=== PATIENT | male | born 1955 | race Caucasian/White ===

== ENCOUNTER → 2020-04-07 | Outpatient (CLI) | payer MEDICARE ==
--- NOTE | 2020-04-07 12:21 | RAD ---
EXAM: Chest CT without intravenous contrast. HISTORY: Pulmonary nodule. TECHNIQUE: Computed tomographic images of the chest were obtained without contrast. Multiplanar reformatting was performed. *One or more of the following individualized dose reduction techniques were utilized for this examination: 1. Automated exposure control. 2. Adjustment of the mA and/or kV according to patient size. 3. Use of iterative reconstruction technique. COMPARISON: None. FINDINGS: There is a 10 mm solid circumscribed nodule within the inferior lateral right upper lobe. There are few calcified granulomas, the largest of which is seen within the medial left upper lobe. There is minimal biapical predominant emphysema. There is peripheral groundglass and nodular opacity within the anterior aspects of both lungs likely due to chronic interstitial changes. There is no infiltrate, pleural effusion or pneumothorax. The heart is normal in size. The aorta is aortic and coronary artery atherosclerosis. There are prominent mediastinal and hilar lymph nodes. For reference purposes, there is a right paratracheal lymph node measuring 2.1 cm and a subcarinal lymph node or lymph node conglomerate measuring 3.2 cm. There is a tiny cyst within the right hepatic lobe. The gallbladder is contracted likely due to the postprandial status of patient. There is no suspicious osseous lesion. There are degenerative changes throughout the spine. IMPRESSION: 1. 10 mm inferior lateral right upper lobe pulmonary nodule. This is within limits in size for assessment with PET/CT, if there are no prior studies to assess for interval change. 2. Minimal apical predominant emphysema with superimposed anterior upper lobe predominant chronic interstitial changes. 3. Healed granulomatous disease. 4. Mediastinal and hilar lymphadenopathy. This is nonspecific and may be reactive in etiology. The possibility of underlying neoplasm is not excluded in the absence of prior studies to assess for change. Electronically signed by: Maddy Muro MD (04/07/2020 12:18 PM) [id number]
== END ==
LOC: CT 11:43
PROVIDERS: ATTEND Internal Medicine Pulmonary Disease
DX: R91.1 Solitary pulmonary nodule (principal); J43.9 Emphysema, unspecified; I70.0 Atherosclerosis of aorta; I25.10 Atherosclerotic heart disease of native coronary artery without angina pectoris
CPT/HCPCS: 71250

== ENCOUNTER → 2020-06-23 | Outpatient (CLI) | payer MEDICARE ==
[~2020-06-23] MED LIST: ALLO300T PO; ATOR40TA59 PO; GLUC-11 PO; LISI-334 PO; MULT-766 PO
== END ==
LOC: LAB 13:16
PROVIDERS: ATTEND Nurse Anesthetist, Certified Registered
DX: Z01.812 Encounter for preprocedural laboratory examination (principal); K42.9 Umbilical hernia without obstruction or gangrene; Z20.828 Contact with and (suspected) exposure to other viral communicable diseases
CPT/HCPCS: U0003

== ENCOUNTER → 2020-06-27 | Day surgery (SDC) | payer MEDICARE ==
[~2020-06-27] MED LIST changes: +ACETAMINOPHEN 500 MG TABLET PO ONE; +BUPIVACAINE-EPI 0.25%-1:200000 MPF 30 ML VIAL. ONE; +DEXAMETHASONE SOD PHOS 4 MG/ML VIAL. ONE; +GLYCOPYRROLATE 1 MG/5 ML VIAL. ONE; +IPRATRPIUM/ALBUTEROL 0.5/2.5MG 3 ML NEBU. NEB PRN; +IV RINGERS SOLUTION,LACTATED 1,000 ML IV SCH; +LIDOCAINE 2% PF 5 ML VIAL. ONE; -LISI-334 PO; +LISI20TA18 PO; +MIDAZOLAM HCL PF 2 MG/2 ML VIAL. IV ONE; +MIDAZOLAM HCL PF 2 MG/2 ML VIAL. ONE; +NEOSTIGMINE 10 MG/10 ML VIAL. ONE; +ONDANSETRON PF 4 MG/2 ML VIAL. IV PRN; +ONDANSETRON PF 4 MG/2 ML VIAL. ONE; +PROPOFOL 10,000 MCG/ML (20ML) VIAL IV ONE; +ROCURONIUM 50 MG/5 ML VIAL. ONE; +SEVOFLURANE 31 TO 60 MINUTES. IH ONE; +SUCCINYLCHOLINE 200 MG/10 ML VIAL. ONE; +levoFLOXacin 500mg PREMIX 500 MG/100 ML BAG IV ONE
--- NOTE | 2020-06-27 11:46 | PDOC4 ---
Operative Report DATE June 272020 at 1145 Preop Diagnosis Umbilical hernia Post-op Diagnosis Same Operation Performed Umbilical hernia repair Patient is a 65-year-old male with umbilical hernia. Procedure of open umbilical hernia repair was explained to the patient detail risk benefits were also discussed including bleeding infection alternatives to this procedure also discussed with patient who seemed to understand and gave a verbal written consent to have the procedure performed. Patient was taken to the operating room placed in the supine position general anesthesia was initiated once patient was sleeping intubated his abdomen was prepped and draped in usual sterile fashion using ChloraPrep. Area around the umbilicus was injected quarter percent Marcaine with epinephrine incision was made with a 15 blade scalpel just above the umbilicus is carried down through subcutaneous tissues electrocautery right hemostasis down to the fascial defect. The fascia was then closed with a [id number] 0 Vicryl suture. The skin was then reapproximated for subcuticular Monocryl Mastisol Steri-Strips and island dressings were applied. Patient was awakened extubated in the operating room taken to recovery in stable condition all sponge instrument needle counts listed as correct estimated blood loss 5 mL Surgeon Neville ANESTHESIA PROPOSED: GENERAL Blood Loss 5 mL Specimen None Complications None CHYNA DAVEY MD Jun 27, 2020 11:46
--- NOTE | 2020-06-27 11:48 | DISCH ---
DISCHARGE INSTRUCTIONS-DC Condition on Discharge Condition on Discharge: Stable Activity after Discharge Activity Instructions for Disc: Avoid exertion Other activity instructions: No lifting more than 20 pounds for 2 weeks Diet after Discharge Diet after Discharge: Regular Wound/Incision Care Other wound/incision instructi: Kavita shower 24 hours Contacting the DRAb after DC Call your doctor for: If your condition worsens Follow-Up Follow up with: Dr. Davey in 2 weeks CHYNA DAVEY MD Jun 27, 2020 11:48
[2020-06-27 12:54] VITALS: BP 122/70
== END | disposition home or self-care (01) ==
LOC: SURG 10:37
PROVIDERS: ATTEND Surgery
DX: K42.9 Umbilical hernia without obstruction or gangrene (principal); E78.5 Hyperlipidemia, unspecified; I10 Essential (primary) hypertension; M10.9 Gout, unspecified; J43.9 Emphysema, unspecified; I70.0 Atherosclerosis of aorta; I25.10 Atherosclerotic heart disease of native coronary artery without angina pectoris; Z85.828 Personal history of other malignant neoplasm of skin; Z79.899 Other long term (current) drug therapy; Z79.82 Long term (current) use of aspirin; Z82.49 Family history of ischemic heart disease and other diseases of the circulatory system
CPT/HCPCS: 49585; J0330; J1100; J1956; J2001; J2250; J2405; J2704; J2710; J3010; J3490; J7120

== ENCOUNTER → 2020-10-12 | Outpatient (CLI) | payer MEDICARE ==
[2020-06-27 12:54] VITALS: BP 122/70
[~2020-10-12] MED LIST changes: -ACETAMINOPHEN 500 MG TABLET PO ONE; -BUPIVACAINE-EPI 0.25%-1:200000 MPF 30 ML VIAL. ONE; -DEXAMETHASONE SOD PHOS 4 MG/ML VIAL. ONE; -GLYCOPYRROLATE 1 MG/5 ML VIAL. ONE; -IPRATRPIUM/ALBUTEROL 0.5/2.5MG 3 ML NEBU. NEB PRN; -IV RINGERS SOLUTION,LACTATED 1,000 ML IV SCH; -LIDOCAINE 2% PF 5 ML VIAL. ONE; -MIDAZOLAM HCL PF 2 MG/2 ML VIAL. IV ONE; -MIDAZOLAM HCL PF 2 MG/2 ML VIAL. ONE; -NEOSTIGMINE 10 MG/10 ML VIAL. ONE; -ONDANSETRON PF 4 MG/2 ML VIAL. IV PRN; -ONDANSETRON PF 4 MG/2 ML VIAL. ONE; -PROPOFOL 10,000 MCG/ML (20ML) VIAL IV ONE; -ROCURONIUM 50 MG/5 ML VIAL. ONE; -SEVOFLURANE 31 TO 60 MINUTES. IH ONE; -SUCCINYLCHOLINE 200 MG/10 ML VIAL. ONE; -levoFLOXacin 500mg PREMIX 500 MG/100 ML BAG IV ONE
--- NOTE | 2020-10-12 09:37 | RAD ---
INDICATION: Reason: HTN, SCREENING, HX OF SMOKING X 50 YEARS / Spl. Instructions: / History: COMPARISON: None. FINDINGS: Spectral Doppler, color and grayscale ultrasound images are obtained through the abdominal aorta. Measurements of abdominal aorta are from proximal to distal in millimeters: Proximal 18 x 16, mid 16 x 18, distal 18 x 17. Common iliac arteries are approximately 10 mm. Calcific atherosclerosis. Prominent velocities in the right greater than left common iliac artery measures 245 on the right and 179 cm/S on the left. IMPRESSION: * Calcific atherosclerosis without aneurysmal dilatation of abdominal aorta. * Prominent velocities in the common iliac arteries. A portion this is likely technical in nature bu t a site of narrowing is not excluded Electronically signed by: Franco Teran MD (10/12/2020 9:34 AM) [id number]
== END ==
LOC: US 08:46
PROVIDERS: ATTEND Specialist
DX: I71.4 Abdominal aortic aneurysm, without rupture (principal); I10 Essential (primary) hypertension; I70.0 Atherosclerosis of aorta; Z87.891 Personal history of nicotine dependence
CPT/HCPCS: 76770

== ENCOUNTER → 2021-01-29 | Outpatient (CLI) | payer MEDICARE ==
[2020-06-27 12:54] VITALS: BP 122/70
--- NOTE | 2021-01-29 13:19 | RAD ---
CT ABDOMEN+PELVIS WO INDICATION: LLQ PAIN TIMES 5 DAYS EXAM: Noncontrast CT of the abdomen and pelvis. Coronal and sagittal reformatted images were perform ed. PQRS compliance statement: One or more of the following individualized dose reduction techniques were utilized for this examinat ion: 1. Automated exposure control 2. Adjustment of the mA and/or kV according to patient size 3. Use of iterative reconstruction technique COMPARISON: None FINDINGS: No free air, free fluid, or fluid collection. Lower chest: The visualized lower lungs are aerated. No pleural or pericardial effusion. ABDOMEN: Liver: The noncontrast liver is homogeneous in attenuation. Gallbladder and biliary: Normal gallbladder without radiopaque stone. Normal caliber bile ducts. Spleen: Normal spleen. Pancreas: The noncontrast pancreas is homogeneous in attenuation without peripancreatic inflammatory changes. Adrenal glands: Normal adrenal glands. Kidneys and ureters: Right renal 4 mm calculus. No hydronephrosis. GI tract: The stomach is decompressed and poorly evaluated. Normal caliber small bowel and colon. Col onic diverticulosis. Normal appendix. Locule of fat along the descending colon with hyperdense rim an d surrounding inflammatory stranding. Vascular structures: Normal caliber abdominal aorta. Moderate aortoiliac atherosclerotic disease. Lymph nodes: No lymphadenopathy in the abdomen or pelvis. PELVIS: Genitourinary system: Normal bladder. SKELETAL STRUCTURES AND SOFT TISSUES: Degenerative changes of the spine. Transitional lumbosacral tanika alexander with a lumbarized S1 vertebra and rudimentary disc at S1-S2. Moderate to severe spinal canal norberto nosis at L3-4 and L4-5. IMPRESSION: 1. Epiploic appendagitis along the descending colon. 2. Diverticulosis without evidence of acute diverticulitis. 3. Nonobstructive right renal 4 mm calculus. 4. Moderate to severe spinal canal stenosis at L3-4 and L4-5. This could be further characterized wit h MRI, if clinically warranted. Electronically signed by: Lincoln Cifuentes MD (01/29/2021 1:17 PM) [id number]
== END ==
LOC: CT 12:47
PROVIDERS: ATTEND Specialist
DX: N20.0 Calculus of kidney (principal); K57.30 Diverticulosis of large intestine without perforation or abscess without bleeding; K63.89 Other specified diseases of intestine; I70.0 Atherosclerosis of aorta; I70.8 Atherosclerosis of other arteries; M47.817 Spondylosis without myelopathy or radiculopathy, lumbosacral region; M48.061 Spinal stenosis, lumbar region without neurogenic claudication
CPT/HCPCS: 74176

== ENCOUNTER → 2021-04-13 | Outpatient (CLI) | payer MEDICARE ==
[2020-06-27 12:54] VITALS: BP 122/70
--- NOTE | 2021-04-13 11:01 | RAD ---
EXAM: CT LOW-DOSE LUNG SCREENING CLINICAL HISTORY: Reason: smoker x 50 yrs, 3/4 pk/day / Spl. Instructions: / History: COMPARISON: 04/07/2020 04/01/2019 TECHNIQUE: Noncontrast helical low-dose CT chest per standard departmental protocol. PQRS compliance statement - One or more of the following individualized dose reduction techniques wer e utilized for this study: 1. Automated exposure control 2. Adjustment of the mA and/or kV according to patient size 3. Use of iterative reconstruction technique FINDINGS: 12 mm right upper lobe lung nodule (series 5 image 225), previously 10 mm on 04/07/2020. Calcified gra nuloma left upper lobe and right lower lobe. 3 mm left upper lobe lung nodule (series 5 image 244), s table to 04/07/2020. Heart is not enlarged. Coronary calcifications are seen. No pericardial effusion. No axillary lymphad enopathy. No mediastinal/hilar lymphadenopathy within the constraints of a low-dose noncontrast exami nation. Right hepatic cyst. Aortic calcifications are seen. RECOMMENDATIONS/ IMPRESSION: 1. LUNG-RADS category: 4B. 12 mm right upper lobe lung nodule has increased in size from [address] Furth er evaluation with PET/CT and/or histopathologic correlation is recommended. Electronically signed by: Eran Macedo MD (04/13/2021 10:58 AM) [facility]
== END ==
LOC: CT 08:05
PROVIDERS: ATTEND Internal Medicine Pulmonary Disease
DX: Z12.2 Encounter for screening for malignant neoplasm of respiratory organs (principal); I70.0 Atherosclerosis of aorta; R91.1 Solitary pulmonary nodule; J84.10 Pulmonary fibrosis, unspecified; I25.10 Atherosclerotic heart disease of native coronary artery without angina pectoris; K76.89 Other specified diseases of liver; F17.210 Nicotine dependence, cigarettes, uncomplicated
CPT/HCPCS: 71271

== ENCOUNTER → 2021-08-22 | Outpatient (CLI) | payer MEDICARE ==
[2020-06-27 12:54] VITALS: BP 122/70
--- NOTE | 2021-08-22 10:05 | RAD ---
INDICATION: Reason: HTN, HX OF SMOKING, HX OF ENDARTS BILAT / Spl. Instructions: / History: COMPARISON: None. TECHNIQUE: Color, grayscale and doppler ultrasound images obtained of the carotid system bilaterally. Percent stenosis is estimated using criteria that correlates with NASCET methodology. FINDINGS: Peak systolic velocities are as follows in cm/s: Right Carotid System: CCA: 172 ICA: 174 ICA/CCA Ratio 1 Left Carotid System: CCA: 160 ICA: 168 ICA/CCA Ratio 1.1 Vertebral arteries are antegrade bilaterally. Elevated velocity in right external carotid artery measuring 267 cm/S with the left external carotid artery not visualized. Atherosclerotic disease is seen throughout. This includes both soft and hard plaque. This includes a focus of soft plaque at the right common carotid artery with approximately 50 percent stenosis. Irregular heartbeat at time of exam. Soft plaque at left common carotid artery with less than 50 perc ent stenosis. IMPRESSION: * Bilateral soft and hard plaque is seen without evidence of a greater than 70 percent stenosis at t he bilateral internal carotid arteries. There is however elevated velocities within the bilateral int ernal carotid arteries which correlates with 50-69 percent stenosis. There is also foci of soft plaqu e in the bilateral common carotid arteries contributing to narrowing. * Right external carotid artery has a elevated velocity which could be from narrowing. The left exte rnal carotid artery is not visualized therefore stenosis or occlusion is not excluded. * Irregular heartbeat. Electronically signed by: Franco Teran MD (08/22/2021 10:02 AM) [id number]
== END ==
LOC: US 08:56
PROVIDERS: ATTEND Specialist
DX: I65.23 Occlusion and stenosis of bilateral carotid arteries (principal); R09.89 Other specified symptoms and signs involving the circulatory and respiratory systems; I10 Essential (primary) hypertension; E78.00 Pure hypercholesterolemia, unspecified; R01.1 Cardiac murmur, unspecified; Z87.891 Personal history of nicotine dependence
CPT/HCPCS: 93880